=== PATIENT | female | born 1980 | race Caucasian/White ===

== ENCOUNTER 2023-05-01 16:15 | Emergency (ER) | payer MEDICAID, SELFPAY ==
[2023-05-01] MEDS ORDERED: Ketorolac Tromethamine 30 MG/ML VIAL ONE (17:39)
[2023-05-01] MEDS ORDERED: Cyclobenzaprine 10 MG TAB ONE (17:39)
[2023-05-01] MEDS ORDERED: traMADol HCl 50 MG TAB ONE (19:48)
[2023-05-01] MEDS ORDERED: Lidocaine 5% Patch TD SCH (20:00)
[2023-05-01] MEDS ORDERED: Lidocaine 4% Patch TD SCH (20:00)
[2023-05-01 20:57] LABS: Bilirubin 1+ (Negative); Blood, Urine 25 (Negative); Clarity Slightly Cloudy (Clear); Glucose, Urine (Dipstick) Normal (Negative); Ketone, Urine 50 mg/dL (Negative); Leukocyte 25 (Negative); Nitrite Negative (Negative); Protein, Urine (Dipstick) 30 mg/dl (Neg-Trace); Specific Gravity, Urine 1.015 (1.005-1.030)
[2023-05-01 21:21] LABS: Bacteria/HPF Rare-Few HPF (None Seen); CAUTI Indications for Culture Pelvic or flank pain; Mucous/LPF 1+ LPF (<2+); Squamous Epithelial 0-3 HPF (0-3); Urine Culture Reflex No No
== END 2023-05-01 21:39 | disposition home or self-care (01) ==
LOC: CSHERS 16:15
DX: M54.31 Sciatica, right side (principal); R31.9 Hematuria, unspecified; F17.210 Nicotine dependence, cigarettes, uncomplicated
CPT/HCPCS: 72100; 81001; 87086; 96372; J1885